=== PATIENT | female | born 1955 | race Caucasian/White ===

== ENCOUNTER 2019-08-26 12:03 | Day surgery (SDC) | payer OTHER ==
[~2019-08-26] VITALS: Ht 157.5 cm; Wt 42.7 kg
[2019-08-26] MEDS ORDERED: FENTANYL PF 100 MCG/2ML ONE (12:12)
[2019-08-26] MEDS ORDERED: MIDAZOLAM 1 MG/ML, 2ML ONE (12:12)
[2019-08-26] MEDS ORDERED: CHLORHEXIDINE 15 ML UDC ONE (12:38)
[2019-08-26] MEDS ORDERED: LACTATED RINGERS 1,000 ML IV SCH (12:41)
[2019-08-26] MEDS ORDERED: CHLORHEXIDINE 15 ML UDC MM STA (12:41)
[2019-08-26 12:42] VITALS: BP 112/69
[2019-08-26] MEDS ORDERED: [UNRECOGNIZED DRUG - REMARK] (12:47)
[2019-08-26] MEDS ORDERED: ZOLP10TA PO (12:47)
[2019-08-26] MEDS ORDERED: HYDR1TAB16 PO (12:47)
[2019-08-26] MEDS ORDERED: LEVO75TA5 PO (12:47)
[2019-08-26] MEDS ORDERED: PROPOFOL 10 MG/ML, 50ML ONE (13:27)
[2019-08-26] MEDS ORDERED: GLYCOPYRROLATE 0.2MG/1ML, 5ML ONE (13:27)
[2019-08-26] MEDS ORDERED: ONDANSETRON 2MG/ML, 2ML IVPush PRN (14:00)
[2019-08-26] MEDS ORDERED: OXYcodone 5 MG/5 ML ORAL.SOL UDC PO PRN (14:00)
[2019-08-26] MEDS ORDERED: FENTANYL PF 100 MCG/2ML IV PRN (14:00)
== END 2019-08-26 16:05 | disposition home or self-care (01) ==
LOC: OUT 12:03
PROVIDERS: ATTEND Internal Medicine
DX: R13.10 Dysphagia, unspecified (principal); K31.811 Angiodysplasia of stomach and duodenum with bleeding; Z79.891 Long term (current) use of opiate analgesic; Z79.899 Other long term (current) drug therapy; Z85.818 Personal history of malignant neoplasm of other sites of lip, oral cavity, and pharynx
CPT/HCPCS: 43255; 43259; 93005; J2250; J2704; J3010; J7120; U0001